=== PATIENT | female | born 1960 | race Caucasian/White ===

== ENCOUNTER → 2017-04-04 | Outpatient (CLI) | payer OTHER ==
[2017-04-04 08:54] LABS: BASO % 0 % (0-3); EOS % 4 % (0-3); HEMATOCRIT 37.8 % (36.0-47.0); HEMOGLOBIN 12.2 g/dL (12.0-15.5); LYMPH # 2.1 x10^3/uL (1.0-4.8); LYMPH % 27 % (24-48); MEAN CORPUSCULAR HEMOGLOBIN 30 pg (25-35); MEAN CORPUSCULAR HGB CONC 32 g/dL (31-37); MEAN CORPUSCULAR VOLUME 92 fL (79-100); MONO % 6 % (0-9); NEUT % 63 % (31-73); PLATELET COUNT 159 x10^3/uL (140-400); RED BLOOD COUNT 4.09 x10^6/uL (3.50-5.40)
[2017-04-04 09:01] LABS: ALBUMIN 3.2 g/dL (3.4-5.0); ALBUMIN/GLOBULIN RATIO 0.8 (1.0-1.7); GFR 56.9; POTASSIUM 4.3 mmol/L (3.5-5.1); TOTAL BILIRUBIN 0.4 mg/dL (0.2-1.0); TOTAL PROTEIN 7.4 g/dL (6.4-8.2)
[2017-04-04 09:08] LABS: CHOLESTEROL/HDL RATIO 3.3
[2017-04-04 18:03] LABS: BILIRUBIN,URINE NEGATIVE (NEG); GLUCOSE,URINE NEGATIVE (NEG); NITRITE,URINE NEGATIVE (NEG); PH,URINE 5.5; PROTEIN,URINE NEGATIVE (NEG-TRACE); UROBILINOGEN,URINE 0.2 mg/dL (0.2 mg/dL)
[2017-04-04 18:18] LABS: BACTERIA,URINE 0 /HPF (0-FEW); RBC,URINE 0 /HPF (0-2); SQUAMOUS EPITHELIAL CELL,UR FEW /LPF
== END | disposition home or self-care (01) ==
LOC: LAB 08:17
PROVIDERS: ATTEND Family Medicine
DX: Z12.11 Encounter for screening for malignant neoplasm of colon (principal); I10 Essential (primary) hypertension; E78.9 Disorder of lipoprotein metabolism, unspecified
CPT/HCPCS: 36415; 80053; 80061; 81001; 83036; 84443; 85027

== ENCOUNTER → 2018-07-05 | Outpatient (CLI) | payer OTHER ==
[2018-07-05 10:54] LABS: BASO % 1 % (0-3); BILIRUBIN,URINE NEGATIVE (NEG); CLARITY,URINE CLEAR; COLOR,URINE YELLOW; EOS # 0.2 x10^3/uL (0.0-0.7); EOS % 3 % (0-3); HEMATOCRIT 40.6 % (36.0-47.0); HEMOGLOBIN 13.6 g/dL (12.0-15.5); LYMPH # 2.1 x10^3/uL (1.0-4.8); LYMPH % 28 % (24-48); MEAN CORPUSCULAR HEMOGLOBIN 30 pg (25-35); MEAN CORPUSCULAR HGB CONC 34 g/dL (31-37); MEAN CORPUSCULAR VOLUME 90 fL (79-100); MONO # 0.5 x10^3/uL (0.0-1.1); MONO % 7 % (0-9); NEUT # 4.5 x10^3uL (1.8-7.7); NEUT % 62 % (31-73); NITRITE,URINE NEGATIVE (NEG); PH,URINE 6.5; PLATELET COUNT 192 x10^3/uL (140-400); PROTEIN,URINE NEGATIVE (NEG-TRACE); RED BLOOD COUNT 4.49 x10^6/uL (3.50-5.40); RED CELL DISTRIBUTION WIDTH 13.8 % (11.5-14.5); WHITE BLOOD COUNT 7.3 x10^3/uL (4.0-11.0)
[2018-07-05 11:05] LABS: BACTERIA,URINE 0 /HPF (0-FEW); RBC,URINE OCC /HPF (0-2); SQUAMOUS EPITHELIAL CELL,UR FEW /LPF; WBC,URINE OCC /HPF (0-4)
[2018-07-05 11:09] LABS: CREATININE 1.1 mg/dL (0.6-1.0); GFR 50.8; POTASSIUM 4.6 mmol/L (3.5-5.1)
[2018-07-05 11:16] LABS: CHOLESTEROL/HDL RATIO 3.6
== END | disposition home or self-care (01) ==
LOC: LAB 10:25
PROVIDERS: ATTEND Family Medicine
DX: Z01.419 Encounter for gynecological examination (general) (routine) without abnormal findings (principal); I10 Essential (primary) hypertension
CPT/HCPCS: 36415; 80048; 80061; 81001; 85025; 87623; 88175

== ENCOUNTER → 2018-07-10 | Outpatient (CLI) | payer OTHER ==
--- NOTE | 2018-07-12 12:16 | RAD ---
DATE: 07/10/2018 EXAM: MAMMO LEROY SCREENING BILATERAL HISTORY: Routine screening COMPARISON: 09/12/2016 This study was interpreted with the benefit of Computerized Aided Detection (CAD). The breast parenchyma is heterogeneously dense, which could reduce sensitivity of mammography. Breast parenchyma level C. FINDINGS: 2-D and 3-D tomosynthesis imaging was performed in CC and MLO projections. No new or enlarging breast densities are seen. No spiculated mass or architectural distortion is evident. No suspicious microcalcifications are seen. IMPRESSION: Stable mammograms without evidence of malignancy. BI-RADS CATEGORY: 2 BENIGN FINDING(S) RECOMMENDED FOLLOW-UP: 12M 12 MONTH FOLLOW-UP PQRS compliance statement: Patient information was entered into a reminder system with a target due date for the next mammogram. Mammography is a sensitive method for finding small breast cancers, but it does not detect them all and is not a substitute for careful clinical examination. A negative mammogram does not negate a clinically suspicious finding and should not result in delay in biopsying a clinically suspicious abnormality. "Our facility is accredited by the [employer] Mammography [employer]."
== END | disposition home or self-care (01) ==
LOC: MAMMO 14:36
PROVIDERS: ATTEND Family Medicine
DX: Z12.31 Encounter for screening mammogram for malignant neoplasm of breast (principal); I10 Essential (primary) hypertension
CPT/HCPCS: 77063; 77067

== ENCOUNTER → 2019-09-18 | Outpatient (CLI) | payer OTHER ==
--- NOTE | 2019-09-18 16:30 | RAD ---
DATE: 09/18/2019. EXAM: MAMMO LEROY SCREENING BILATERAL. HISTORY: Routine mammographic screening. COMPARISON: 07/10/2018. This study was interpreted with the benefit of Computerized Aided Detection (CAD). FINDINGS: Breast Density: HETERO The breast parenchyma is heterogenously dense, which could reduce sensitivity of mammography. Breast parenchyma level C.. A small nodule medially is stable chronically. There are no suspicious masses, microcalcifications or architectural distortion. The parenchymal pattern is stable. BI-RADS CATEGORY: 2 BENIGN FINDING(S). RECOMMENDED FOLLOW-UP: 12M 12 MONTH FOLLOW-UP. PQRS compliance statement: Patient information was entered into a reminder system with a target due date 09/18/2020 for the next mammogram. Mammography is a sensitive method for finding small breast cancers, but it does not detect them all and is not a substitute for careful clinical examination. A negative mammogram does not negate a clinically suspicious finding and should not result in delay in biopsying a clinically suspicious abnormality. "Our facility is accredited by the [employer] Mammography [employer]."
== END | disposition home or self-care (01) ==
LOC: MAMMO 10:13
PROVIDERS: ATTEND Family Medicine
DX: Z12.31 Encounter for screening mammogram for malignant neoplasm of breast (principal); N63.0 Unspecified lump in unspecified breast
CPT/HCPCS: 77063; 77067

== ENCOUNTER → 2019-12-18 | Outpatient (CLI) | payer OTHER ==
[2019-12-18 10:35] LABS: ALBUMIN 3.5 g/dL (3.4-5.0); ALBUMIN/GLOBULIN RATIO 0.8 (1.0-1.7); CALCIUM 9.3 mg/dL (8.5-10.1); GFR 68.2; POTASSIUM 4.2 mmol/L (3.5-5.1); TOTAL BILIRUBIN 0.5 mg/dL (0.2-1.0); TOTAL PROTEIN 7.7 g/dL (6.4-8.2)
[2019-12-18 10:48] LABS: HEMATOCRIT 38.4 % (36.0-47.0); HEMOGLOBIN 12.8 g/dL (12.0-15.5); RED BLOOD COUNT 4.26 x10^6/uL (3.50-5.40); RED CELL DISTRIBUTION WIDTH 13.6 % (11.5-14.5); WHITE BLOOD COUNT 6.9 x10^3/uL (4.0-11.0)
== END | disposition home or self-care (01) ==
LOC: LAB 10:01
PROVIDERS: ATTEND Family Medicine
DX: I10 Essential (primary) hypertension (principal)
CPT/HCPCS: 36415; 80053; 85027

== ENCOUNTER → 2020-01-10 | Outpatient (CLI) | payer OTHER ==
[2020-01-11 21:07] LABS: ALBUM 3.3 g/dL (2.9-4.4); ALPHA 1 0.2 g/dL (0.0-0.4); ALPHA 2 0.7 g/dL (0.4-1.0); BETA 1.2 g/dL (0.7-1.3); GAMMA 1.4 g/dL (0.4-1.8); PROTEIN TOTAL 6.8 g/dL (6.0-8.5); SPEP AG RATIO 0.9 (0.7-1.7)
== END | disposition home or self-care (01) ==
LOC: LAB 10:00
PROVIDERS: ATTEND Family Medicine
DX: R77.1 Abnormality of globulin (principal)
CPT/HCPCS: 36415; 84165

== ENCOUNTER → 2020-01-30 | Outpatient (CLI) | payer OTHER ==
--- NOTE | 2020-01-30 15:04 | RAD ---
Examination: 1. Limited left breast ultrasound. INDICATION: 59-year-old woman with spontaneous clear left nipple discharge. COMPARISON: Bilateral screening mammogram of 09/18/2019. TECHNIQUE: Grayscale and color Doppler imaging of the subareolar left breast was performed. FINDINGS: There is a single dilated duct in the subareolar left breast at the 9:00 position and contains an intraluminal mass that is approximately 1 cm long and 0.5 cm wide. IMPRESSION: Low suspicion for malignancy intraductal mass , likely representing a papilloma. Recommend ultrasound-guided core needle biopsy when clinically appropriate. According to current CDC guidelines, elective procedures should be deferred for a few weeks due to ongoing dunham virus (COVID-19) outbreak. Recommend the patient return in 4-6 weeks for ultrasound-guided core needle biopsy. Discussed with patient. BI-RADS Category 4 Findings suspicious for malignancy Biopsy recommended. Electronically signed by: Aurora Lopez MD (01/30/2020 3:01 PM) [id number]
== END | disposition home or self-care (01) ==
LOC: US 13:49
PROVIDERS: ATTEND Family Medicine
DX: N64.52 Nipple discharge (principal)
CPT/HCPCS: 36415; 76641; 84146

== ENCOUNTER → 2020-04-03 | Outpatient (CLI) | payer OTHER | END | disposition home or self-care (01) | LOC: SPEC 15:56 | PROVIDERS: ATTEND Surgery | DX: N64.52 Nipple discharge (principal) | CPT/HCPCS: 88104 ==

== ENCOUNTER → 2020-04-15 | Outpatient (CLI) | payer OTHER ==
--- NOTE | 2020-04-15 10:58 | RAD ---
Examination: 1. Left breast ultrasound-guided core needle biopsy. 2. Left digital diagnostic post procedure mammogram. INDICATION: Intraductal mass in the subareolar left breast biopsy. COMPARISON: Left breast diagnostic ultrasound of 01/30/2020. TECHNIQUE: For the left breast biopsy, informed consent was obtained and an appropriate procedural pause observed. Using standard sterile technique, ultrasound guidance and local anesthesia, 2 14-gauge core biopsy samples were obtained of the intraductal mass in the subareolar left breast and a C-shaped biopsy marker was deployed. Hemostasis ensured with direct breast compression for 10 minutes and puncture site dressed. A left digital postprocedure mammogram was obtained. The left digital postprocedure mammogram showed scattered fibroglandular densities in postbiopsy changes in the subareolar left breast with a biopsy marker positioned in the slightly medial subareolar left breast. No postbiopsy hematoma. IMPRESSION: 1. Successful ultrasound-guided left breast core needle biopsy of intraductal mass. Pathology results pending. An addendum will be issued once pathology results become available. 2. Satisfactory deployment of a biopsy marker in the subareolar left breast with no postbiopsy hematoma. Electronically signed by: Aurora Lopez MD (04/15/2020 10:55 AM) [id number]
--- NOTE | 2020-04-18 17:06 | PATHOLOGY ---
[facility] Accession Number: [id number] . 01 Material submitted: . nipple - LEFT INTRADUCTAL MASS AT NIPPLE. Modifiers: left . 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 See comment. (JPM:[facility] 04/17/2020) [facility] 04/18/2020 1650 Local . 02 Comment: Sections of the left intraductal mass at nipple needle biopsy reveal fragments of intraductal papilloma. Within the papilloma, there is focal ductal epithelial proliferation which focally appears somewhat monomorphous. There are focal foamy histiocytes within the stroma of the papilloma. A limited panel of immunoperoxidase stains is obtained and yields the following results: . P63 (A1): Presence of myoepithelial cells in focus of ductal epithelial proliferation within papilloma CK5/6 (A1): Focus of ductal epithelial proliferation within papilloma shows mosaic pattern of positivity . The morphologic and immunophenotypic findings are supportive of the diagnosis of intraductal papilloma with usual ductal epithelial hyperplasia. There is no evidence of malignancy. . The case is also examined by Dr. Thrasher, who concurs with the diagnosis. (JPM:[facility] 04/17/2020) . Special stains performed: Immunoperoxidase stains for p63 and CK5/6 on A1. . 02 Electronically signed: . Víctor Díaz MD, Pathologist NPI- [id number] . 01 Gross description: . The specimen is received in formalin, labeled "Deny Snow, left breast at nipple, intraductal" and consists of multiple needle core fragments of yellow-gallegos tissue measuring from 0.2-0.5 cm in length and 0.2 cm in diameter. They were removed at 9:12 AM and placed in formalin at 9:13 AM. The cold ischemic time is 1 minute and the total time in formalin is greater than 6 hours and less than 72 hours. They are entirely submitted in A1. (PETER; 04/15/2020) JFQ/JFQ 04/17/2020 0900 Local . 02 Pathologist provided ICD-10: D24.2 . 02 CPT . 768992, R98433, P07684 Specimen Comment: A courtesy copy of this report has been sent to [phone] Specimen Comment: [phone], Specimen Comment: Report sent to ,DR CASTREJON / DR TAPIA Performed at: [facility] [address], [place] [id number] MD Brendon Estevez MD Phone: [phone] Performed at: [address] [facility] [address], [place] [id number] MD Víctor Díaz MD Phone: [phone]
== END | disposition home or self-care (01) ==
LOC: US 08:14
PROVIDERS: ATTEND Surgery
DX: N63.20 Unspecified lump in the left breast, unspecified quadrant (principal); D24.2 Benign neoplasm of left breast
CPT/HCPCS: 19083; 77065; 88305; 88341; 88342; C1713; 19081; 76942

== ENCOUNTER 2020-11-26 08:27 | Day surgery (SDC) | payer OTHER ==
[~2020-11-26] VITALS: Ht 160 cm; Wt 78.5 kg
[~2020-11-26 08:27] MED LIST: ATEN100T PO; BUPIVACAINE-EPI 0.5%-1:200000 MPF 30 ML VIAL. INJ ONE; HYDR-2145 PO; HYDROmorphone 2 MG/ML VIAL IV PRN; IV RINGERS,LACTATED 1000ML 1,000 ML IV SCH; LISI-130 PO; MORPHINE SULFATE 2 MG/ML VIAL. IV PRN; ONDANSETRON PF 4 MG/2 ML VIAL. IV PRN; PROCHLORPERAZINE 10 MG/2 ML VIAL. IV PRN; fentaNYL PF VIAL 100 MCG/2 ML VIAL IV PRN
[2020-11-26] MEDS ORDERED: HEPARIN for IV BOLUS 10,000 UNIT/10 ML VIAL. ONE (11:42)
[2020-11-26] MEDS ORDERED: GLYCOPYRROLATE 1 MG/5 ML VIAL. ONE (11:42)
[2020-11-26] MEDS ORDERED: SEVOFLURANE 61 TO 120 MINUTES. IH ONE (11:49)
[2020-11-26] MEDS ORDERED: LIDOCAINE 2% PF 5 ML VIAL. ONE (11:49)
[2020-11-26] MEDS ORDERED: ONDANSETRON PF 4 MG/2 ML VIAL. ONE (11:49)
[2020-11-26] MEDS ORDERED: PROPOFOL 50 ML IV ONE (11:49)
[2020-11-26] MEDS ORDERED: DEXAMETHASONE SOD PHOS 4 MG/ML VIAL ONE (11:49)
--- NOTE | 2020-11-26 12:10 | PDOC4 ---
Operative Note Operative Note Operative Note: Preoperative Diagnosis: Left breast nipple drainage Postoperative Diagnosis: Same Procedure: Left breast biopsy with needle localization Surgeon: [facility] Tutor: MIKEY Haney Anesthesia: General EBL: 10 mL Specimen: Left breast biopsy to pathology Drains: None Complications: None Indication: The patient is a 60-year-old female who has had persistent left nipple drainage. A core needle biopsy identified a probable intraductal papilloma. The drainage has persisted however and she requests excision of the entire lesion. The risks of surgery were discussed which include bleeding, infection, scar tissue, pain, recurrence, anesthetic risk, potential need for additional surgery procedure. She understands and would like to proceed. Description: The patient was taken to the operating room following wire localization in radiology. She was placed supine on the operating table. General anesthesia was performed. The left breast was prepped with ChloraPrep and draped in a standard surgical manner. The wire was located inferiorly a couple of centimeters away from the nipple. A curved incision was made at the border of the areola. Sharp dissection was carried down into the breast parenchyma. The wire was identified directing toward the subareolar lesion. With sharp dissection a generous portion of the involved tissue near the tip of the wire was excised. The specimen was sent to radiology. Specimen radiograph confirmed the wire and clip to be present. Hemostasis was achieved with cautery. The subcutaneous tissue was closed with 3-0 Vicryl. The skin was closed with 4-0 Monocryl. The incision was infiltrated with half percent Marcaine with epinephrine. Steri-Strips and a sterile dressing were applied. The patient tolerated the procedure well and was sent to the recovery room in st able condition. At the end of the case all counts were correct. NAI CASTREJON MD Nov 26, 2020 12:10
[2020-11-26] MEDS ORDERED: HYDR-2759 PO (12:24)
[2020-11-26] MEDS ORDERED: HYDROcodone/APAP 5/325MG 1 TAB TABLET PO ONE (12:30)
[2020-11-26 12:56] VITALS: BP 156/82
--- NOTE | 2020-11-26 16:33 | RAD ---
Examination: 1. Left breast needle localization with ultrasound guidance. 2. Left digital postprocedure mammogram. INDICATION: 60-year-old woman status post left breast biopsy with pathologic diagnosis of papilloma i s referred for preoperative needle localization prior to surgical excision. COMPARISON: Left breast ultrasound and mammogram of 10/27/2020, and ultrasound-guided left breast cor e needle biopsy images of 04/15/2020. TECHNIQUE AND FINDINGS: Informed consent was obtained and an appropriate procedural pause observed. Using standard sterile te chnique, sonographic imaging guidance and local anesthesia, a 7.5 cm localizing needle was advanced i nto the intraductal mass in the periareolar left breast, and following satisfactory placement of the needle tip, a hookwire was threaded through the needle into the mass, and the needle removed. Digital left mammogram in the CC and ML projections showed satisfactory placement of the localizing w tl immediately adjacent to the S shaped biopsy clip in the lateral subareolar left breast. Puncture site was dressed and the patient transported to the perioperative care unit for further care and management by her referring surgeon. There were no apparent complications. IMPRESSION: Successful left breast needle localization of an intraductal mass with ultrasound guidance. A specimen radiograph is recommended. It should contains the hook wire, and biopsy marker. Electronically signed by: Aurora Lopez MD (11/26/2020 4:30 PM) [id number]
--- NOTE | 2020-11-26 17:38 | RAD ---
Left breast specimen radiograph. INDICATION: Status post needle localization of the previously biopsied intraductal papilloma in the l eft breast. Specimen radiograph requested to confirm biopsy marker in the specimen. COMPARISON: Post procedure left mammogram of earlier the same day showing needle localization of the biopsied mass under ultrasound guidance. FINDINGS: Single specimen radiograph shows a S-shaped biopsy marker in the specimen at the G8 coordinates. hook wire overlies it IMPRESSION: Surgical specimen contains the localizing wire and the biopsy marker which is located at G8. Electronically signed by: Aurora Lopez MD (11/26/2020 5:35 PM) [id number]
--- NOTE | 2020-12-02 09:12 | PATHOLOGY ---
[facility] Accession Number: [id number] . 01 Material submitted: . breast - LEFT BREAST BIOPSY. Modifiers: left . 01 Clinical history: . LEFT NIPPLE DISCHARGE 2ND MASS . 02 Diagnosis: Breast tissue, wire localized left breast biopsy: - Intraductal papilloma with scattered foci of atypical ductal hyperplasia - margins free of atypical ductal hyperplasia. - Atypical lobular hyperplasia, focal. - Duct ectasia with periductal sclerosis and focal chronic inflammation. - Mild to moderate ductal epithelial hyperplasia, focal. . (JPM:[place]:[facility]; 11/27/2020) . Special stains performed: CK5/6 on A3, CK5/6 and E-cadherin on A4 . . . [facility] 12/01/2020 0933 Local . 02 Comment: Sections of the wire localized left breast biopsy reveal an intraductal papilloma. Within the papilloma, there are scattered small foci of epithelial proliferation composed of fairly uniform ductal epithelial cells having a cribriform arrangement. There are also several small foci of atypical lobular hyperplasia within the breast tissue adjacent to the papilloma and elsewhere within the biopsy. Microscopic sections of the biopsy also show duct ectasia with periductal sclerosis, focal chronic inflammation, and focal mild to moderate ductal epithelial hyperplasia. . Several immunoperoxidase stains are obtained and yield the following results: CK5/6 (A3): Foci of monomorphic epithelial proliferation within papilloma negative CK5/6 (A4): Foci of monomorphic epithelial proliferation within papilloma negative E-cadherin (A4): Epithelial cells within foci of atypical lobular hyperplasia negative . The morphologic and immunophenotypic findings are supportive of the diagnosis of intraductal papilloma with scattered foci of atypical ductal epithelial hyperplasia, and scattered foci of atypical lobular hyperplasia. The margins of resection are negative for papilloma with atypical ductal epithelial hyperplasia and atypical lobular hyperplasia. . The case is also examined by Dr. rAagon, who concurs with the diagnoses. (JPM:[facility] 12/01/2020) . . . Special stains performed: CK5/6 on A3 and CK5/6 and E-cadherin on A4 . 02 Electronically signed: . Víctor Díaz MD, Pathologist NPI- [id number] . 01 Gross description: . Received in formalin labeled "Snow Barclay, left breast biopsy" is a 5 g unoriented lobular lumpectomy measuring 3.4 x 3.2 x 0.9 cm. There is a localization wire extending through the center of the specimen which is removed. The specimen is inked black and the specimen is serially sectioned into 6 slices to reveal lobular, gallegos-yellow cut surface with a ovoid gallegos-white possible biopsy site measuring 0.9 x 0.6 x 0.4 cm. The specimen is entirely submitted in cassettes A1-A6. The specimen is removed from the patient at 1153 and placed in formalin at 1205 on November 26, 2020, and is not removed from formalin until 2340 on November 26, 2020.([facility]; 11/26/2020) GZA/GZA 12/01/2020 0924 Local . 02 Pathologist provided ICD-10: D24.2, N60.92, N60.42, N61.0 . 02 CPT . 343388, P55356, S23230 Specimen Comment: A courtesy copy of this report has been sent to [phone] Specimen Comment: Report sent to Specimen Comment: A duplicate report has been generated due to demographic updates. [facility]formed at: [facility] [address], [place] [id number] MD Jose F Becerra MD Phone: [phone] [facility]formed at: [facility] [address] [place], [place] [id number] MD Víctor Díaz MD Phone: [phone]
== END 2020-11-26 13:25 | disposition home or self-care (01) ==
LOC: SURG 08:27
PROVIDERS: ATTEND Surgery
DX: D24.2 Benign neoplasm of left breast (principal); N60.92 Unspecified benign mammary dysplasia of left breast; N60.42 Mammary duct ectasia of left breast; N61.0 Mastitis without abscess; I10 Essential (primary) hypertension; M19.90 Unspecified osteoarthritis, unspecified site; Z79.899 Other long term (current) drug therapy; Z98.51 Tubal ligation status; Z98.890 Other specified postprocedural states; Z88.0 Allergy status to penicillin; Z20.828 Contact with and (suspected) exposure to other viral communicable diseases
CPT/HCPCS: 19083; 77065; 87426; 88305; 88341; 88342; C9803; J1100; J1956; J2405; J2704; J3490; U0003; 19285; 76098; 76942; J1644

== ENCOUNTER → 2020-12-12 | Outpatient (CLI) | payer OTHER ==
[2020-11-26 12:56] VITALS: BP 156/82
[~2020-12-12] MED LIST changes: -BUPIVACAINE-EPI 0.5%-1:200000 MPF 30 ML VIAL. INJ ONE; +HYDR-2759 PO; -HYDROmorphone 2 MG/ML VIAL IV PRN; -IV RINGERS,LACTATED 1000ML 1,000 ML IV SCH; -MORPHINE SULFATE 2 MG/ML VIAL. IV PRN; -ONDANSETRON PF 4 MG/2 ML VIAL. IV PRN; -PROCHLORPERAZINE 10 MG/2 ML VIAL. IV PRN; -fentaNYL PF VIAL 100 MCG/2 ML VIAL IV PRN
[2020-12-12 10:43] LABS: ALBUMIN 3.3 g/dL (3.4-5.0); ALBUMIN/GLOBULIN RATIO 0.8 (1.0-1.7); CALCIUM 9.1 mg/dL (8.5-10.1); POTASSIUM 4.1 mmol/L (3.5-5.1); TOTAL BILIRUBIN 0.5 mg/dL (0.2-1.0); TOTAL PROTEIN 7.6 g/dL (6.4-8.2)
[2020-12-12 10:51] LABS: CHOLESTEROL/HDL RATIO 3.7
== END ==
LOC: LAB 09:33
PROVIDERS: ATTEND Family Medicine
DX: Z01.419 Encounter for gynecological examination (general) (routine) without abnormal findings (principal); I10 Essential (primary) hypertension; R07.89 Other chest pain
CPT/HCPCS: 36415; 80053; 80061; 82306; 84436; 84443

== ENCOUNTER 2020-12-19 07:41 | Outpatient (CLI) | payer OTHER ==
[2020-12-19] VITALS (13 sets, daily range): BP systolic 139–179; BP diastolic 78–89
[~2020-12-19] VITALS: Ht 161.3 cm; Wt 76.7 kg
[2020-12-19] MEDS ORDERED: ATOR20TA58 PO (09:50)
[2020-12-19] MEDS ORDERED: ERGO400T2 PO (09:50)
[2020-12-19 09:53] LABS: HEMATOCRIT 36.6 % (36.0-47.0); HEMOGLOBIN 12.3 g/dL (12.0-15.5); RED BLOOD COUNT 4.06 x10^6/uL (3.50-5.40); RED CELL DISTRIBUTION WIDTH 13.5 % (11.5-14.5); WHITE BLOOD COUNT 6.5 x10^3/uL (4.0-11.0)
[2020-12-19 09:58] LABS: POTASSIUM 3.8 mmol/L (3.5-5.1); PROTHROMBIN TIME PATIENT 12.4 SEC (11.7-14.0)
[2020-12-19] MEDS ORDERED: IOHEXOL 300 MG/ML 100ML VIAL. ONE ×2 (10:32)
[2020-12-19] MEDS ORDERED: LIDOCAINE 1% PF 2 ML VIAL. ONE (10:34)
--- NOTE | 2020-12-19 10:38 | CARD ---
MR#: [id number] Date of Study: 12/19/2020 Ordering Physician: JACQUELYN RADER, Referring Physician: JACQUELYN RADER, Tech: Katty Feng, [facility] APPROVED REPORT EXAM: Two-dimensional and M-mode echocardiogram with Doppler and color Doppler. Other Information Quality : GoodHR: 51bpm INDICATION Chest Pain RISK FACTORS Hypertension Hyperlipidemia 2D DIMENSIONS RVDd3.0 (2.9-3.5cm)Left Atrium(2D)3.2 (1.6-4.0cm) IVSd0.9 (0.7-1.1cm)Aortic Root(2D)2.8 (2.0-3.7cm) LVDd4.9 (3.9-5.9cm)LVOT Diameter2.0 (1.8-2.4cm) PWd1.0 (0.7-1.1cm)LVDs2.7 (2.5-4.0cm) FS (%) 44.3 %SV83.5 ml LVEF(%)75.4 (>50%) Aortic Valve AoV Peak Kane.143.4cm/sAoV VTI31.9cm AO Peak GR.8.2mmHgLVOT Peak Kane.130.2cm/s LVOT VTI 27.71cmAO Mean GR.4mmHg CLAYTON (VMAX)2.11qh8JKN (VTI)2.62cm2 Mitral Valve MV E Desvamhn60.2cm/sMV DECEL [id number] MV A Bksyqbca48.7cm/sMV TSS27vi E/A Ratio0.9MVA (PHT)5.16cm2 TDI E/Lateral E'6.8E/Medial E'8.2 Pulmonary Valve PV Peak Foctaniy36.9cm/sPV Peak Grad.3mmHg Tricuspid Valve TR P. Vhmbvdzt879jh/sRAP NXPWYQFY3hyBl TR Peak Gr.70niJvVQKI52fkWo Pulmonary Vein S1 Nliuhfri23.3cm/sD2 Irggvrse74.6cm/s PVa sjogymke087fpgd LEFT VENTRICLE The left ventricle is normal size. There is normal left ventricular wall thickness. The left ventricu lar systolic function is normal and the ejection fraction is within normal range. The Ejection Fracti on is 50-55%. There is normal LV segmental wall motion. Transmitral Doppler flow pattern is Grade I-a bnormal relaxation pattern. RIGHT VENTRICLE The right ventricle is normal size. There is normal right ventricular wall thickness. The right ventr icular systolic function is normal. ATRIA The left atrium size is normal. The right atrium size is normal. The interatrial septum is intact wit h no evidence for an atrial septal defect or patent foramen ovale as noted on 2-D or Doppler imaging. AORTIC VALVE The aortic valve is normal in structure and function. Doppler and Color Flow revealed no significant aortic regurgitation. There is no significant aortic valvular stenosis. MITRAL VALVE The mitral valve is normal in structure and function. There is no evidence of mitral valve prolapse. There is no mitral valve stenosis. Doppler and Color-flow revealed trace mitral regurgitation. TRICUSPID VALVE The tricuspid valve is normal in structure and function. Doppler and Color Flow revealed trace tricus pid regurgitation with a estimated PAP of 24 mmHg. There is no tricuspid valve stenosis. PULMONIC VALVE Doppler and Color Flow revealed trace pulmonic valvular regurgitation. There is no pulmonic valvular stenosis. GREAT VESSELS The aortic root is normal in size. The IVC is normal in size and collapses >50% with inspiration. PERICARDIAL EFFUSION There is no evidence of significant pericardial effusion. Critical Notification Critical Value: No <Conclusion> The left ventricular systolic function is normal and the ejection fraction is within normal range. Th e Ejection Fraction is 50-55%. There is normal LV segmental wall motion. Doppler and Color Flow revealed trace tricuspid regurgitation with a estimated PAP of 24 mmHg. Signed by : Amish Redd, Electronically Approved : 12/19/2020 10:38:28
[2020-12-19] MEDS ORDERED: HEPARIN for IV BOLUS 10,000 UNIT/10 ML VIAL. ONE (10:46)
[2020-12-19] MEDS ORDERED: MIDAZOLAM HCL/PF 5 MG/5 ML VIAL. ONE (10:46)
[2020-12-19] MEDS ORDERED: fentaNYL PF VIAL 100 MCG/2 ML VIAL ONE (10:46)
[2020-12-19] MEDS ORDERED: VERAPAMIL 5 MG/2 ML VIAL. ONE (10:47)
[2020-12-19] MEDS ORDERED: NITROGLYCERIN 200 MCG/2 ML SYRINGE FOR CATH/VASC LAB. ONE (10:47)
[2020-12-19] MEDS ORDERED: LIDOCAINE 1% PF 2 ML VIAL. INJ ONE (11:15)
[2020-12-19] MEDS ORDERED: CONTRAST GIVEN. MC PRN (11:15)
[2020-12-19] MEDS ORDERED: VERAPAMIL 5 MG/2 ML VIAL. IART ONE (11:15)
[2020-12-19] MEDS ORDERED: IOHEXOL 300 MG/ML 100ML VIAL. IART ONE (11:15)
[2020-12-19] MEDS ORDERED: MIDAZOLAM HCL/PF 5 MG/5 ML VIAL. IV ONE (11:15)
[2020-12-19] MEDS ORDERED: NITROGLYCERIN 200 MCG/2 ML SYRINGE FOR CATH/VASC LAB. IART ONE (11:15)
[2020-12-19] MEDS ORDERED: fentaNYL PF VIAL 100 MCG/2 ML VIAL IV ONE (11:15)
[2020-12-19] MEDS ORDERED: HEPARIN for IV BOLUS 10,000 UNIT/10 ML VIAL. IART ONE (11:15)
--- NOTE | 2020-12-19 11:26 | CARD ---
MR#: [id number] Date of Study: 12/19/2020 Ordering Physician: JACQUELYN RADER, Referring Physician: JACQUELYN RADER, Tech: Roxana Minor RT(R) APPROVED REPORT Technologist: Roxana Minor RT(R) Nurse: Geno Haq R.N. Procedure(s) performed: Left heart catheterization, selective coronary angiography and left ventricul ography via right transradial approach Sedation Time: 25 Minutes Contrast: 101 mL Omnipaque Fluoro Time: 3.8 Minutes Dose: 19.7 Gycm2 INDICATION The indication(s) include : Chest pain and dyspnea on exertion concerning for unstable angina. [facility] Clinical Frailty Scale [facility] Clinical Frailty Scale: Managing Well Heart Failure Heart Failure: No CASE TECHNIQUE IV conscious sedation was used throughout procedure with appropriate monitoring and was performed in the presence of a registered nurse who was an independent trained observer other than the physician p erforming the procedure. During this case, Fluoroscopy and low osmolar contrast were used for imaging . Specimen(s) Removed: No Estimated Blood loss: 5 cc's. PROCEDURE NARRATIVE After explaining the risks, benefits and alternative options, informed consent was obtained from edilia ent. Patient was brought to the cardiac Director Of [employer] and right wrist was prepped and draped in the usual fashion after confirming a positive modified Nicholas's test. Arterial access was obtained in the righ t radial artery and a 6 Argentine sheath was inserted. 6 Argentine Rene catheter was used to perform rahat ective angiography of the left and right coronary arteries. 6 Argentine pigtail catheter was used to pe rform left ventriculography. Patient tolerated the procedure well. Hemostasis was achieved using TR band. There were no immediate complications. The following findings were noted. FINDINGS 1. Hemodynamics: Left ventricular end-diastolic pressure of 8 mmHg. No pullback gradient across the aortic valve. 2. Left ventriculography: Normal left ventricle systolic function with ejection fraction estimated at 60%. No significant mitral regurgitation seen. 3. Coronary angiography: a. The left main coronary artery arose from the left sinus of Valsalva, gave rise to the left anteri or descending and left circumflex arteries and did not show any significant stenosis. b. The left anterior descending artery showed 30% stenosis in the midsegment. c. The left circumflex artery did not show any significant stenosis. d. The right coronary artery was a large and dominant vessel arising from the right sinus of Valsalv a that showed 20% stenosis in the midsegment. Conclusion 1. No significant coronary disease 2. Normal left ventricle systolic function with ejection fraction estimated at 60% Signed by : Jacquelyn Rader, Electronically Approved : 12/19/2020 11:26:11
--- NOTE | 2020-12-19 13:53 | NUR ---
Discharge Note: ANA M HER [facility] Discharge instructions and discharge home medications reviewed with Patient and a copy given. All questions have been answered and understanding verbalized. The following instructions and handouts were given: radial site care and adult moderate sedation Discontinued lines and drains: Peripheral IV intact. Patient discharged to Home or Self Care withSpousevia Wheelchair
== END 2020-12-19 14:10 | disposition home or self-care (01) ==
LOC: CCL 07:41
PROVIDERS: ATTEND Internal Medicine Cardiovascular Disease
DX: R07.9 Chest pain, unspecified (principal); R06.09 Other forms of dyspnea; I20.0 Unstable angina; E78.00 Pure hypercholesterolemia, unspecified; I10 Essential (primary) hypertension; M19.90 Unspecified osteoarthritis, unspecified site; F41.9 Anxiety disorder, unspecified; Z79.899 Other long term (current) drug therapy; Z20.822 Contact with and (suspected) exposure to COVID-19; Z98.890 Other specified postprocedural states; Z88.0 Allergy status to penicillin
CPT/HCPCS: 36415; 80048; 85027; 85610; 87426; 93306; 93458; 99152; 99153; C1769; C1892; C9803; J1644; J2250; J3010; J3490; Q9967; U0003

== ENCOUNTER → 2021-10-29 | Outpatient (CLI) | payer OTHER ==
[2020-12-19 13:50] VITALS: BP 162/87
[~2021-10-29] MED LIST changes: +ATOR20TA58 PO; +ERGO400T2 PO
--- NOTE | 2021-10-29 16:35 | RAD ---
Bilateral digital screening 2-D and 3-D (tomosynthesis) mammogram: Reason for examination: Routine screening. History of benign bilateral breast biopsies. Comparison is made to previous mammograms dated 09/18/2019, 07/10/2018. Bilateral mammograms in CC and oblique projections were obtained with 2-D imaging and 3-D tomosynthes is imaging and reviewed on the workstation. Interpretation was made with the benefit of CAD. Findings: Breast density: Category C. The breasts are heterogeneously dense, which may obscure small masses. There are no suspicious masses, malignant appearing calcifications or architectural distortion. Impression: No evidence of malignancy. ASSESSMENT: BI-RADS 1. Negative. Recommendations: Routine screening mammograms. This patient's information has been entered into a reminder system for the patient to be notified wit h the results of her examination and a target date for the next mammogram. Your patient's mammogram demonstrates that she has dense breast tissue (breast density category C or D), which could hide abnormalities, and if she has other risk factors for breast cancer that have bee n identified, she might benefit from supplemental screening tests that may be suggested by you as her ordering physician. Dense breast tissue, in and of itself, is a relatively common condition. Therefo re, this information is not provided to cause undue concern, but rather to raise your awareness and t o promote discussion with your patient regarding the presence of other risk factors, in addition to d ense breast tissue. Electronically signed by: Adriana Davis MD (10/29/2021 4:32 PM) [id number]
== END ==
LOC: MAMMO 09:50
PROVIDERS: ATTEND Family Medicine
DX: Z12.31 Encounter for screening mammogram for malignant neoplasm of breast (principal)
CPT/HCPCS: 77063; 77067

== ENCOUNTER → 2021-11-16 | Outpatient (CLI) | payer OTHER ==
[2020-12-19 13:50] VITALS: BP 162/87
[2021-11-16 11:59] LABS: BASO % 1 % (0-3); EOS # 0.2 x10^3/uL (0.0-0.7); EOS % 2 % (0-3); HEMATOCRIT 39.1 % (36.0-47.0); LYMPH # 2.7 x10^3/uL (1.0-4.8); LYMPH % 32 % (24-48); MEAN CORPUSCULAR HEMOGLOBIN 30 pg (25-35); MEAN CORPUSCULAR HGB CONC 33 g/dL (31-37); MEAN CORPUSCULAR VOLUME 92 fL (79-100); MONO # 0.6 x10^3/uL (0.0-1.1); MONO % 7 % (0-9); NEUT # 4.9 x10^3/uL (1.8-7.7); NEUT % 58 % (31-73); PLATELET COUNT 176 x10^3/uL (140-400); RED BLOOD COUNT 4.28 x10^6/uL (3.50-5.40); RED CELL DISTRIBUTION WIDTH 13.6 % (11.5-14.5); WHITE BLOOD COUNT 8.3 x10^3/uL (4.0-11.0)
[2021-11-16 12:27] LABS: ALBUMIN 3.6 g/dL (3.4-5.0); ALBUMIN/GLOBULIN RATIO 0.9 (1.0-1.7); CHOLESTEROL/HDL RATIO 3.3; GFR 67.8; POTASSIUM 4.7 mmol/L (3.5-5.1); TOTAL BILIRUBIN 0.5 mg/dL (0.2-1.0); TOTAL PROTEIN 7.4 g/dL (6.4-8.2)
== END ==
LOC: LAB 09:43
PROVIDERS: ATTEND Family Medicine
DX: E78.5 Hyperlipidemia, unspecified (principal); E55.9 Vitamin D deficiency, unspecified; M79.10 Myalgia, unspecified site
CPT/HCPCS: 36415; 80053; 80061; 82306; 82550; 85025